=== PATIENT | female | born 1945 | race Caucasian/White ===

== ENCOUNTER 2016-10-06 06:23 | Day surgery (SDC) | payer OTHER ==
[2016-10-06] MEDS ORDERED: MIDAZOLAM 2 MG/2 ML VIAL IVP ONE (06:33)
[2016-10-06] MEDS ORDERED: NS 1,000 ML IV ONE (06:33)
[2016-10-06] MEDS ORDERED: BENZOCAINE UNIT DOSE SPRAY HURRICAINE MM ONE (06:33)
[2016-10-06] MEDS ORDERED: fentaNYL 100 MCG/2 ML INJ IVP ONE (06:33)
[2016-10-06] MEDS ORDERED: MIDAZOLAM 2 MG/2 ML VIAL ONE (07:41)
[2016-10-06] MEDS ORDERED: fentaNYL 100 MCG/2 ML INJ ONE (07:41)
== END 2016-10-06 10:00 | disposition home or self-care (01) ==
LOC: FCATH 06:23
PROVIDERS: ATTEND Internal Medicine Cardiovascular Disease
PROC: B246ZZ4 Ultrasonography of Right and Left Heart, Transesophageal (ICD-10-PCS; principal; 2016-10-06)
DX: I34.0 Nonrheumatic mitral (valve) insufficiency (principal); I07.1 Rheumatic tricuspid insufficiency; R93.1 Abnormal findings on diagnostic imaging of heart and coronary circulation
CPT/HCPCS: J2250; J3010